=== PATIENT | female | born 1970 | race African-American/Black ===

== ENCOUNTER 2017-08-03 01:24 | Emergency (ER) | payer MEDICAID ==
[~2017-08-03] VITALS: Ht 157.5 cm; Wt 83.2 kg
[2017-08-03 06:45] VITALS: BP 138/88
[2017-08-03] MEDS ORDERED: BACITRACIN ZINC OINT UDPKT TOP ONE (07:00)
== END 2017-08-03 07:05 | disposition home or self-care (01) ==
LOC: ER 01:24
DX: T20.26XA Burn of second degree of forehead and cheek, initial encounter (principal); W86.0XXA Exposure to domestic wiring and appliances, initial encounter; Y93.89 Activity, other specified; Y92.89 Other specified places as the place of occurrence of the external cause; Y99.8 Other external cause status; Z98.890 Other specified postprocedural states
CPT/HCPCS: 99283; Z7610

== ENCOUNTER 2021-11-21 22:31 | Emergency (ER) | payer MEDICAID ==
[~2021-11-21] VITALS: Ht 157.5 cm; Wt 79.9 kg
[2021-11-22] MEDS ORDERED: NITROGLYCERIN 0.4MG TABLET SL SL PRN (01:00)
[2021-11-22] MEDS ORDERED: ASPIRIN 81MG TABLET PO ONE (01:00)
[2021-11-22 01:32] LABS: BASOPHILS % 0.9 % (0.0-2.0); EOSINOPHILS % 4.3 % (0.0-5.0); HEMATOCRIT. 35.9 % (36.0-48.0); HEMOGLOBIN. 11.4 g/dL (12.0-16.0); LYMPHOCYTES % 37.8 % (20.0-50.0); MEAN CORPUSCULAR HEMOGLOBIN 23.5 pg (28.0-32.0); MEAN CORPUSCULAR VOLUME 74.1 fL (81.0-99.0); MONOCYTES % 5.7 % (2.0-8.0); NEUTROPHILS % 51.3 % (40.0-76.0); PLATELET 252 x1000/uL (130-400); RED BLOOD CELL COUNT 4.85 mill/uL (4.2-5.4)
[2021-11-22 01:35] LABS: CHLORIDE 108 mEq/L (98-107)
[2021-11-22 03:44] VITALS: BP 173/98
== END 2021-11-22 03:44 | disposition home or self-care (01) ==
LOC: ER 22:31
DX: R07.89 Other chest pain (principal); I10 Essential (primary) hypertension; Z98.890 Other specified postprocedural states
CPT/HCPCS: 36415; 71045; 80053; 83880; 84484; 85025; 93005; 99285